=== PATIENT | male | born 1950 | race Caucasian/White ===

== ENCOUNTER → 2023-12-22 12:00 | Outpatient (CLI) | payer MEDICARE, MEDICAID, SELFPAY ==
--- NOTE | 2023-12-22 12:04 | DI.CT.S_ITS ---
PROCEDURE: CT LUNG LOW DOSE SCREENING INDICATIONS: Personal history of nicotine dependence TECHNIQUE: Noncontrast 2.0-2.5 mm thick sections acquired from the pulmonary apices to the posterior costophrenic angles. 7 mm thick axial MIP, and 5 mm coronal and sagittal reformats were then acquired. For radiation dose reduction, the following was used: automated exposure control, adjustment of mA and/or kV according to patient size. COMPARISON: None. FINDINGS: Image quality: Diagnostic. Lower Neck: No enlarged lymph nodes. Thyroid: No thyroid nodules which require sonographic follow up, per consensus guidelines. Axillae: No enlarged lymph nodes. Chest Wall: Unremarkable. Bones: Unremarkable. Lungs and Pleura: No pneumothorax or pleural effusions. There is a partially solid, partially ground-glass mass within the anterior right upper lobe which measures 1.1 x 1.0 by 1.2 cm (series 3/image 90 and series 4/image 26). The solid portion of this mass measures less than 6 mm in diameter. A pleural based soft tissue nodule is present within the posterolateral aspect of the right lung at the base of the right upper lobe, adjacent to the oblique fissure which measures 0.8 by 1.1 cm in the axial plane (series 3/image 116). No other suspicious pulmonary nodules or mass lesions. Heart: Heart size is normal. No pericardial effusion. Thoracic Vessels: The aorta and pulmonary arteries demonstrate normal size. Mediastinum and Neyda: No enlarged lymph nodes. Esophagus: No wall thickening. No hiatal hernia. Upper Abdomen: Visualized upper abdomen solid organs and bowel loops appear normal. IMPRESSION: 1. 1.2 cm partially solid, partially ground-glass nodule. Short interval follow-up recommended. 2. Questionable 1.1 cm pulmonary nodule versus atelectasis at the base of the right upper lobe. Short interval follow-up recommended. LUNG-RADS 4A; [address] follow-up or PET-CT recommended. Clinically Significant Non-pulmonary Findings: None. Dictated by: Magnolia Shannon M.D. on 12/22/2023 at 15:12 Approved by: Magnolia Shannon M.D. on 12/22/2023 at 15:17
== END ==
LOC: CT 12:02
PROVIDERS: Family Provider Family Medicine; Referring Provider Physician Assistant; Visit Provider Physician Assistant
DX: Z12.2 Encounter for screening for malignant neoplasm of respiratory organs; Z87.891 Personal history of nicotine dependence; R91.1 Solitary pulmonary nodule; R05.8 Other specified cough
CPT/HCPCS: 71271